=== PATIENT | male | born 1990 | race Caucasian/White ===

== ENCOUNTER 2019-11-09 19:01 | Emergency (ER) | payer OTHER, SELFPAY ==
[2019-11-09 19:37] VITALS: BP 165/110; PULSE 90; RESP 14; TEMP 36.9; O2SAT 98; BMI 43.7
--- NOTE | 2019-11-09 21:02 | ED_ITS ---
HPI - Eye Problem General: Chief complaint: Eye Problems Stated complaint: eye pain Time Seen by Provider: 11/09/19 20:30 History of Present Illness: HPI Narrative: Patient is a 28-year-old male comes into the ED with redness and itching of the left eye. Patient says symptoms started this morning when he woke up. Eyes were itchy and watery. He also had nasal congestion and drainage. Patient said his left eye redness and itching had improved since this morning. Denies any vision changes or pain in the thigh.Denies any fevers, shortness of breath, chest pain, abdominal pain, nausea, vomiting, bladder or bowel symptoms. Review of Systems General: Reports: 10 or more systems reviewed and unremarkable except in HPI and below Physical Exam Narrative: EXAM NARRATIVE: Patient is a 28-year-old male comes in the ED who is sitting comfortably in chair in the room. He has not any acute distress or pain. He is also showing no signs of respiratory distress. Const: COMMON NORMALS: oriented x3 HENMT: COMMON NORMALS: normocephalic and external nose normal HEAD & SCALP: normocephalic NOSE: external nose normal and nasal discharge clear MOUTH: oral and palatal mucosa normal THROAT: posterior oropharynx normal and uvula midline Eye: COMMON NORMALS: PERRL and EOMs intact bilaterally GENERAL EYE: normal light reflex CONJUNCTIVA: Yes conjunctiva abnormal (mild ) positive bilateral PUPIL: Yes PERRL DIRECT OPHTHALMOSCOPY: Yes normal light reflex Neck/C-Spine: COMMON NORMALS: supple GENERAL: Yes normal visual inspection Resp: COMMON NORMALS: normal respiratory effort, no retractions, no use of accessory muscles and clear to auscultation bilaterally AUSCULTATION: clear to auscultation bilaterally Cardio: COMMON NORMALS: regular rate, regular rhythm, S1 normal heart sound, S2 normal heart sound, no gallops, no clicks, no murmurs and peripheral pulses 2+ throughout RATE: regular rate RHYTHM: regular rhythm HEART SOUNDS: S1 normal and S2 normal PERIPHERAL PULSES: pulses 2+ throughout GI: COMMON NORMALS: normal to inspection, nondistended, normoactive bowel sounds, soft to palpation and non-tender INSPECTION: Yes visible herniation (located to the right of the umbilicus.) PALPATION: Yes soft : COMMON NORMALS: Yes no CVA tenderness BLADDER/KIDNEY EXAM: Yes no CVA tenderness Back/Pelvis: COMMON NORMALS: no CVA tenderness Extremity: COMMON NORMALS: normal to inspection Neuro: COMMON NORMALS: oriented x3 and moves all extremities Skin: COMMON NORMALS: no rashes or lesions noted GENERAL SKIN EXAM: no rashes or lesions noted Course Vital Signs: Vital signs: Vital Signs Temperature 98.5 F 11/09/19 19:37 Pulse Rate 102 H 11/09/19 21:23 Respiratory Rate 18 11/09/19 21:23 Blood Pressure 154/118 11/09/19 21:23 Pulse Oximetry 97 11/09/19 21:23 Discharge Plan Discharge Patient Disposition: Home, Self-Care Clinical Impression: Acute allergic conjunctivitis of both eyes Condition: Stable Discharge Orders: Discharge Order (Routine); Ordered 11/09/19 Ordered By: Jair Caraballo Referrals: Jair Marcelino MD [Primary Care Provider] - Discharge Diet: Regular Discharge Activity: Resume usual activity Patient Instructions: Conjunctivitis (ED) Activity Restrictions/Additional Instructions: Follow-up with your PCP in 5 days for reevaluation. Use over the counter eyedrops to flush and wash eyes.Take Zyrtec during the day and Benadryl at night to help with itching and sinus congestion. Also you can take [id number] decongestant such as Mucinex To help with nasal congestion and drainage. Drink plenty of fluids and stay hydrated. If you start developing a fever take Tylenol or ibuprofen. Return to ED or urgent care if he started having change in vision, eye pain or puslike drainage from eyes. 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
[2019-11-09 21:23] VITALS: BP 154/118; PULSE 102; RESP 18; O2SAT 97
== END 2019-11-09 21:21 | disposition home or self-care (01) ==
PROVIDERS: Emergency Provider Physician Assistant; Family Provider Family Medicine; PCP Family Medicine
DX: H10.13 Acute atopic conjunctivitis, bilateral (principal)
CPT/HCPCS: 99281

== ENCOUNTER → 2021-06-26 14:03 | Outpatient (BNVA) | payer OTHER, SELFPAY | PROVIDERS: Family Provider Family Medicine; PCP Family Medicine; Visit Provider Family Medicine | DX: G47.30 Sleep apnea, unspecified (principal); R03.0 Elevated blood-pressure reading, without diagnosis of hypertension; Z76.89 Persons encountering health services in other specified circumstances; K42.0 Umbilical hernia with obstruction, without gangrene; R40.0 Somnolence | CPT/HCPCS: 80053; 80061; 84443; 85025 ==